=== PATIENT | female | born 1980 | race Caucasian/White ===

== ENCOUNTER → 2017-03-02 | Outpatient (CLI) | payer MEDICAID ==
[2005-12-14 07:45] VITALS: TEMP 97.3
[~2017-03-02] MED LIST: AMANTADINE; AMANTADINE HCL100 M1 PO; AMANTADINE100 MG PO; ATIVAN 1MG T1 MG/TAB PO; BCP; BIRTH CONTROL PILLS; BUPROPION HCL75 MG PO; BUPROPION SR150 MG PO; CEPHALEXIN500 M1 PO; CLONAZEPAM1 MG PO; ESCITALOPRAM PO; KLONOPIN 1MG1 MG PO; NORCO 325 MG-7.1 TAB PO; SERTRALINE; TOPAMAX25 M1 PO; TRAZODONE HCL100 MG PO; UNABLE; WELLBUTRIN PO; YASMIN 3 MG-0.01 TAB PO
== END ==
LOC: MHCPAIN 08:31
DX: G89.29 Other chronic pain (principal); M79.2 Neuralgia and neuritis, unspecified
CPT/HCPCS: G0463

== ENCOUNTER → 2017-03-05 | Outpatient (CLI) | payer MEDICAID ==
[2017-03-05 11:49] LABS: ADJUSTED CALCIUM 8.7 mg/dL (8.4-10.2); ALBUMIN 4.7 gm/dL (3.5-5.0); BILIRUBIN,TOTAL 0.5 mg/dL (0.0-1.0); CALCIUM 9.3 mg/dL (8.4-10.2); CREATININE, serum 0.76 mg/dL (0.52-1.25); POTASSIUM 3.9 mmol/L (3.4-5.0); TOTAL PROTEIN 7.9 gm/dL (6.4-8.2)
== END ==
LOC: COL.LAB 03-02 09:30
PROVIDERS: Anesthesiology Pain Medicine
DX: M79.2 Neuralgia and neuritis, unspecified (principal)

== ENCOUNTER → 2019-03-31 | Outpatient (CLI) | payer MEDICAID | LOC: MC.RAD 11:36 | DX: Z12.31 Encounter for screening mammogram for malignant neoplasm of breast (principal) ==

== ENCOUNTER → 2023-08-28 | Outpatient (CLI) | payer BC ==
[2005-12-14 07:45] VITALS: BP 98/70; PULSE 70; TEMP 97.3
== END ==
LOC: MC.RAD 14:00
DX: R59.0 Localized enlarged lymph nodes (principal)